=== PATIENT | male | born 1995 | race Caucasian/White ===

== ENCOUNTER 2020-12-30 12:24 | Emergency (ER) | payer MEDICAID ==
[~2020-12-30] VITALS: Ht 175.3 cm; Wt 79.0 kg
[2020-12-30 15:16] VITALS: BP 112/88
== END 2020-12-30 15:39 | disposition home or self-care (01) ==
LOC: ER 12:24
DX: F19.180 Other psychoactive substance abuse with psychoactive substance-induced anxiety disorder (principal); R00.2 Palpitations; R03.0 Elevated blood-pressure reading, without diagnosis of hypertension; F90.9 Attention-deficit hyperactivity disorder, unspecified type
CPT/HCPCS: 93005; 99283

== ENCOUNTER 2024-10-09 23:30 | Emergency (ER) | payer MEDICAID, OTHER ==
[~2024-10-09] VITALS: Ht 180.3 cm; Wt 111.0 kg
[2024-10-09 23:32] VITALS: O2SAT 99
[2024-10-09] MEDS: SODIUM CHLORIDE 0.9% 1,000 ML IV ONE (23:50)
[2024-10-09 23:58] LABS: BASOPHILS % 0.3 % (0.0-2.0); EOSINOPHILS % 0.1 % (0.0-5.0); HEMATOCRIT. 44.2 % (42.0-52.0); HEMOGLOBIN. 15.4 g/dL (14.0-18.0); LYMPHOCYTES % 11.4 % (20.0-50.0); MEAN CORPUSCULAR HEMOGLOBIN 30.3 pg (28.0-32.0); MEAN CORPUSCULAR HGB CONC 34.9 g/dL (31.0-37.0); MEAN CORPUSCULAR VOLUME 86.8 fL (80.0-94.0); MEAN PLATELET VOLUME 8.1 fl (7.4-10.4); MONOCYTES % 4.9 % (2.0-8.0); NEUTROPHILS % 83.3 % (40.0-76.0); PLATELET 349 x1000/uL (130-400); RED CELL DISTRIBUTION WIDTH 13.7 % (11.6-14.6); WHITE BLOOD COUNT 17.6 x1000/uL (4.5-11.0)
[2024-10-10 00:05] LABS: CHLORIDE 99 mEq/L (98-107); SODIUM 134 mEq/L (136-145)
[2024-10-10 00:06] LABS: CALCIUM 9.3 mg/dL (8.7-10.4); CARBON DIOXIDE 24 mEq/L (21-32)
[2024-10-10 00:11] LABS: CREATININE 0.9 mg/dL (0.6-1.3); GLUCOSE 114 mg/dL (70-105); UREA NITROGEN BLOOD 15 mg/dL (9-23)
[2024-10-10 00:13] LABS: ALANINE AMINOTRANSFERASE 21 IU/L (10-49); ALBUMIN 4.6 g/dL (3.2-4.8); ASPARTATE AMINOTRANSFERASE 27 IU/L (<34); BILIRUBIN DIRECT 0.2 mg/dL (<=3.0); PROTEIN TOTAL 6.7 g/dL (6.0-8.3)
[2024-10-10 00:21] LABS: POTASSIUM 2.8 mEq/L (3.5-5.1)
[2024-10-10] MEDS: POTASSIUM CHLORIDE 20MEQ/PACKET PO NR (01:50)
[2024-10-10] MEDS: KCL 20MEQ/100ML PREMIX 100 ML IV ONE (01:57)
[2024-10-10 02:54] LABS: *AMPHETAMINES SCREEN URINE NEGATIVE (NEGATIVE); *BARBITURATES SCREEN URINE NEGATIVE (NEGATIVE); *BENZODIAZEPINES SCREEN URINE NEGATIVE (NEGATIVE); *COCAINE SCREEN URINE NEGATIVE (NEGATIVE)
[2024-10-10 02:55] LABS: CANNABINOID URINE SCREEN NEGATIVE (NEGATIVE); ECSTASY MDMA SCREEN URINE NEGATIVE (NEGATIVE); METHADONE URINE SCREEN NEGATIVE (NEGATIVE); OPIATES URINE SCREEN NEGATIVE (NEGATIVE); PHENCYCLIDINE URINE SCREEN NEGATIVE (NEGATIVE)
[2024-10-10 04:22] LABS: CHLORIDE 107 mEq/L (98-107); POTASSIUM 4.3 mEq/L (3.5-5.1); SODIUM 141 mEq/L (136-145)
[2024-10-10 04:23] LABS: CALCIUM 9.1 mg/dL (8.7-10.4); CARBON DIOXIDE 29 mEq/L (21-32)
[2024-10-10] MEDS ORDERED: POTA-204 MT (04:25)
[2024-10-10 04:28] LABS: CREATININE 0.9 mg/dL (0.6-1.3); GLUCOSE 106 mg/dL (70-105); UREA NITROGEN BLOOD 13 mg/dL (9-23)
[2024-10-10 04:38] VITALS: BP 140/84; PULSE 71; RESP 18; TEMP 36.7; O2SAT 100
== END 2024-10-10 04:42 | disposition home or self-care (01) ==
LOC: ER 10-10 00:01
DX: R42 Dizziness and giddiness (principal); E87.6 Hypokalemia; Z79.899 Other long term (current) drug therapy
CPT/HCPCS: 80076; 80305; 80048; 83690; 85025; 36415; 96361; 96365; 96366; 99284; J7030; J3480; Z7610